=== PATIENT | female | born 1965 | race Hispanic/Latino ===

== ENCOUNTER 2022-05-30 12:25 | Emergency (ER) | payer SELFPAY ==
[2022-05-30] MEDS ORDERED: Oxymetazoline HCl 0.05% (30 ML BOT) ONE (12:43)
[2022-05-30] MEDS ORDERED: hydrALAZINE 20 MG/ML VIAL ONE (12:43)
[2022-05-30 12:56] LABS: #Eosinphils 0.1 thou/uL (0.0-0.7); #Lymphocytes 2.2 thou/uL (1.20-3.40); #Monocytes 0.5 thou/uL (0.11-0.59); #Neutrophils 2.5 thou/uL (1.40-6.50); %Basophils 0.9 % (0.0-1.0); %Eosinophils 2.7 % (0.0-10.0); %Lymphocytes 41.5 % (21.0-51.0); %Monocytes 8.9 % (0.0-10.0); Hemoglobin 13.4 g/dL (12.0-16.0); Mean Corpuscular HGB CONC 31.3 g/dL (32.0-36.0); Mean Corpuscular Hemoglobin 27.6 pg (27.0-31.0); Mean Corpuscular Volume 88.2 fl (78.0-98.0); Mean Platelet Volume 7.6 fL (7.4-10.4); Platelet Count 219 10x3/uL (130-400); RBC Distribution Width 12.8 % (11.5-14.5); Red Blood Cell (RBC) Count 4.86 mill/uL (4.20-5.40); White Blood Cell (WBC) Count 5.4 10x3/uL (4.8-10.8)
[2022-05-30] MEDS ORDERED: Ondansetron PF 4 MG/2 ML Vial ONE (12:59)
[2022-05-30 13:13] LABS: INR-International Normal Ratio 0.9; PTT 27.2 sec (22.9-36.1); Prothrombin Time 12.9 sec (12.0-14.7)
[2022-05-30 13:19] LABS: ALT (SGPT) 29 U/L (8-55); AST (SGOT) 26 U/L (5-34); Albumin 4.2 g/dL (3.5-5.0); Alkaline Phosphatase 71 U/L (40-110); Anion Gap 15 mmol/L (10-20); BUN (Urea Nitrogen) 12 mg/dL (9.8-20.1); Bilirubin, Total 0.3 mg/dL (0.2-1.2); Calc. Creatinine Clearance 0 mL/min (70-130); Calcium 8.9 mg/dL (7.8-10.44); Carbon Dioxide 23 mmol/L (22-29); Chloride 109 mmol/L (98-107); Estimated GFR 101; Globulin 3.7 g/dL (2.4-3.5); Glucose 109 mg/dL (70-105); Protein, Total 7.9 g/dL (6.0-8.3); Sodium 143 mmol/L (136-145)
[2022-05-30] MEDS ORDERED: Acetaminophen 500 MG TAB ONE (13:25)
== END 2022-05-30 15:57 | disposition home or self-care (01) ==
LOC: NAV ERS 12:25
DX: R04.0 Epistaxis (principal); I10 Essential (primary) hypertension; Z79.899 Other long term (current) drug therapy
CPT/HCPCS: 30903; 80053; 85025; 85610; 85730; 96374; 96375; J2405